=== PATIENT | female | born 1970 | race Caucasian/White ===

== ENCOUNTER 2019-01-06 09:03 | Emergency (ER) | payer SELFPAY ==
--- NOTE | 2019-01-06 10:02 | ER ---
Nurse's Notes [facility] Name: Chitra Pierre Age: 48 yrs Sex: Female : 1970 Arrival Date: 01/06/2019 Time: 09:06 Bed 7 Private MD: Diagnosis: Dental caries;Dental root caries;Dental caries, unspecified Presentation: 01/06 09:17 Presenting complaint: Patient states: Right front tooth pain x 2 days. Transition of hb care: patient was not received from another setting of care. Onset of symptoms was January 05, 2019. Risk Assessment: Do you want to hurt yourself or someone else? Patient reports no desire to harm self or others. Initial Sepsis Screen: Does the patient meet any 2 criteria? No. Patient's initial sepsis screen is negative. Does the patient have a suspected source of infection? No. Patient's initial sepsis screen is negative. Care prior to arrival: None. 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 - Social history:: Smoking status: Patient/guardian denies using tobacco. - Ebola Screening: : No symptoms or risks identified at this time. - Family history:: not pertinent. Screenin:45 Abuse screen: Denies threats or abuse. Denies injuries from another. Nutritional ph screening: No deficits noted. Tuberculosis screening: No symptoms or risk factors identified. Fall Risk None identified. Assessment: 09:45 General: Appears in no apparent distress. uncomfortable, well groomed, Behavior is ph calm, cooperative, appropriate for age. Pain: Complains of pain in mouth. Neuro: Level of Consciousness is awake, alert, obeys commands, Oriented to person, place, time, situation. Cardiovascular: Capillary refill < 3 seconds in bilateral fingers Patient's skin is warm and dry. Respiratory: Airway is patent Respiratory effort is even, unlabored. EENT: Poor dentition noted. Derm: Skin is intact, is healthy with good turgor, Skin is pink, warm \T\ dry. Musculoskeletal: Circulation, motion, and sensation intact. Range of motion: intact in all extremities. Vital Signs: 09:14 BP 143 / 85; Pulse 105; Resp 18; Temp 99; Pulse Ox 97% ; Weight 106.59 kg; Height 5 ft. hb 6 in. (167.64 cm); Pain 8/10; 10:20 BP 137 / 90; Pulse 97; Resp 20; Temp 98.5; Pulse Ox 98% on R/A; ph 09:14 Body Mass Index 37.93 (106.59 kg, 167.64 cm) hb ED Course: 09:06 Patient arrived in ED. as 09:10 Bharath Gonzalez MD is Attending Physician. michael 09:16 Arm band placed on right wrist. hb 09:18 Triage completed. hb 09:21 Janina Downs, RN is Primary Nurse. ph 09:45 Patient has correct armband on for positive identification. Bed in low position. Call ph light in reach. Side rails up X 1. Pulse ox on. NIBP on. Warm blanket given. Door closed. Noise minimized. 10:00 Constantin Zheng DDS is Referral Physician. michael 10:25 No provider procedures requiring assistance completed. Patient did not have IV access ph during this emergency room visit. Administered Medications: 10:23 Drug: Amoxicillin 500 mg Route: PO; ph 10:23 Follow up: Response: Medication administered at discharge. ph 10:23 Drug: Motrin 600 mg Route: PO; ph 10:23 Follow up: Response: Medication administered at discharge. ph Outcome: 10:01 Discharge ordered by . michael 10:23 Patient left the ED. ph 10:23 Discharged to home ambulatory. ph 10:23 Condition: good 10:23 Discharge instructions given to patient, Instructed on discharge instructions, follow up and referral plans. medication usage, Demonstrated understanding of instructions, follow-up care, medications, Prescriptions given X 2. Signatures: Bharath Gonzalez MD MD cha Martinez, Amelia as Janina Downs, BEATRIZ RN Vandana Lockwood RN RN
--- NOTE | 2019-01-06 10:02 | EDPHYS ---
Physician Documentation [facility] Name: Chitra Pierre Age: 48 yrs Sex: Female : 1970 Arrival Date: 01/06/2019 Time: 09:06 Bed 7 Private MD: ED Physician Bharath Gonzalez HPI: 01/06 09:57 This 48 yrs old Female presents to ER via Ambulatory with complaints of michael Toothache. 09:57 The patient presents with broken tooth/teeth, pain, redness, swelling. The problem is michael located in the frenulum and gums. Onset: The symptoms/episode began/occurred 3 day(s) ago. Duration: The symptoms are continuous, and are steadily getting worse. Modifying factors: The symptoms are alleviated by nothing, the symptoms are aggravated by nothing. Associated signs and symptoms: The patient has no apparent associated signs or symptoms. Severity of symptoms: At their worst the symptoms were mild, in the emergency department the symptoms are unchanged. The patient has not experienced similar symptoms in the past. 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 - Social history:: Smoking status: Patient/guardian denies using tobacco. - Ebola Screening: : No symptoms or risks identified at this time. - Family history:: not pertinent. ROS: 09:57 Constitutional: Negative for fever, chills, and weight loss, Eyes: Negative for injury, michael pain, redness, and discharge, Neck: Negative for injury, pain, and swelling, Cardiovascular: Negative for chest pain, palpitations, and edema, Respiratory: Negative for shortness of breath, cough, wheezing, and pleuritic chest pain, Abdomen/GI: Negative for abdominal pain, nausea, vomiting, diarrhea, and constipation, Back: Negative for injury and pain, : Negative for injury, bleeding, discharge, and swelling, MS/Extremity: Negative for injury and deformity, Skin: Negative for injury, rash, and discoloration, Neuro: Negative for headache, weakness, numbness, tingling, and seizure, Psych: Negative for depression, anxiety, suicide ideation, homicidal ideation, and hallucinations, Allergy/Immunology: Negative for hives, rash, and allergies, Endocrine: Negative for neck swelling, polydipsia, polyuria, polyphagia, and marked weight changes, Hematologic/Lymphatic: Negative for swollen nodes, abnormal bleeding, and unusual bruising. 09:57 ENT: Positive for dental pain. Exam: 09:57 Constitutional: This is a well developed, well nourished patient who is awake, alert, michael and in no acute distress. Eyes: Pupils equal round and reactive to light, extra-ocular motions intact. Lids and lashes normal. Conjunctiva and sclera are non-icteric and not injected. Cornea within normal limits. Periorbital areas with no swelling, redness, or edema. Neck: Trachea midline, no thyromegaly or masses palpated, and no cervical lymphadenopathy. Supple, full range of motion without nuchal rigidity, or vertebral point tenderness. No Meningismus. Chest/axilla: Normal chest wall appearance and motion. Nontender with no deformity. No lesions are appreciated. Cardiovascular: Regular rate and rhythm with a normal S1 and S2. No gallops, murmurs, or rubs. Normal PMI, no JVD. No pulse deficits. Respiratory: Lungs have equal breath sounds bilaterally, clear to auscultation and percussion. No rales, rhonchi or wheezes noted. No increased work of breathing, no retractions or nasal flaring. Abdomen/GI: Soft, non-tender, with normal bowel sounds. No distension or tympany. No guarding or rebound. No evidence of tenderness throughout. Back: No spinal tenderness. No costovertebral tenderness. Full range of motion. Female : Normal external genitalia. Skin: Warm, dry with normal turgor. Normal color with no rashes, no lesions, and no evidence of cellulitis. MS/ Extremity: Pulses equal, no cyanosis. Neurovascular intact. Full, normal range of motion. Neuro: Awake and alert, GCS 15, oriented to person, place, time, and situation. Cranial nerves II-XII grossly intact. Motor strength 5/5 in all extremities. Sensory grossly intact. Cerebellar exam normal. Normal gait. Psych: Awake, alert, with orientation to person, place and time. Behavior, mood, and affect are within normal limits. 09:57 Head/face: Noted is swelling, tenderness, that is mild, of the mouth. 09:57 ENT: Mouth: Oral mucosa: normal, Gums: noted to have cellulitis, pink, reddened, on the frenulum, Tongue: is normal. Vital Signs: 09:14 BP 143 / 85; Pulse 105; Resp 18; Temp 99; Pulse Ox 97% ; Weight 106.59 kg; Height 5 ft. hb 6 in. (167.64 cm); Pain 8/10; 10:20 BP 137 / 90; Pulse 97; Resp 20; Temp 98.5; Pulse Ox 98% on R/A; ph 09:14 Body Mass Index 37.93 (106.59 kg, 167.64 cm) hb [facility]: 09:10 Patient medically screened. [facility] 09:59 Data reviewed: vital signs, nurses notes. [facility] Administered Medications: 10:23 Drug: Amoxicillin 500 mg Route: PO; ph 10:23 Follow up: Response: Medication administered at discharge. ph 10:23 Drug: Motrin 600 mg Route: PO; ph 10:23 Follow up: Response: Medication administered at discharge. ph Disposition: 01/06/19 10:01 Discharged to Home. Impression: Dental caries, Dental root caries, Dental caries, unspecified. - Condition is Stable. - Discharge Instructions: Dental Abscess, Dental Caries, Adult, Dental Pain, Dental Pain, [id number], Diet and Dental Disease. - Prescriptions for Amoxicillin 500 mg Oral Capsule - take 1 capsule by ORAL route every 8 hours for 10 days; 30 tablet. Tylenol- Codeine #3 300-30 mg Oral Tablet - take 2 tablet by ORAL route every 6 hours As needed; 30 tablet. - Medication Reconciliation Form, Thank You Letter, Antibiotic Education, Prescription Opioid Use form. - Follow up: Private Physician; When: 2 - 3 days; Reason: Recheck today's complaints, Continuance of care, Re-evaluation by your physician. Follow up: Constantin Zheng DDS; When: 2 - 3 days; Reason: Recheck today's complaints, Re-evaluation by your physician. - Problem is new. - Symptoms have improved. Signatures: Bharath Gonzalez MD MD cha Hall, Patricia, RN RN Vandana Lockwood RN RN Corrections: (The following items were deleted from the chart) 10:23 10:01 01/06/2019 10:01 Discharged to Home. Impression: Dental caries; Dental root ph caries; Dental caries, unspecified. Condition is Stable. Forms are Medication Reconciliation Form, Thank You Letter, Antibiotic Education, Prescription Opioid Use. Follow up: Private Physician; When: 2 - 3 days; Reason: Recheck today's complaints, Continuance of care, Re-evaluation by your physician. Follow up: Constantin Zheng; When: 2 - 3 days; Reason: Recheck today's complaints, Re-evaluation by your physician. Problem is new. Symptoms have improved. michael
[2019-01-06] MEDS ORDERED: IBUPROFEN 400 MG TAB ONE (10:33)
[2019-01-06] MEDS ORDERED: IBUPROFEN 200 MG TAB PO ONE (10:33)
[2019-01-06] MEDS ORDERED: AMOXICILLIN TRIHYDR 250 MG CAP ONE (10:33)
== END 2019-01-06 10:23 | disposition home or self-care (01) ==
LOC: ER 09:03
DX: K02.7 Dental root caries (principal); M06.9 Rheumatoid arthritis, unspecified
CPT/HCPCS: 99283